=== PATIENT | female | born 1950 | race Native Hawaiian/Other Pacific Islander ===

== ENCOUNTER 2021-12-13 13:13 | Outpatient (CLI) | payer OTHER | END 2021-12-13 18:55 | disposition home or self-care (01) | LOC: RAD 13:13 | PROVIDERS: ATTEND Nurse Practitioner Family | DX: E55.9 Vitamin D deficiency, unspecified (principal); E56.8 Deficiency of other vitamins; M06.4 Inflammatory polyarthropathy; M85.89 Other specified disorders of bone density and structure, multiple sites; E79.0 Hyperuricemia without signs of inflammatory arthritis and tophaceous disease ==

== ENCOUNTER 2022-01-12 10:37 | Outpatient (CLI) | payer OTHER | END 2022-01-12 20:55 | disposition home or self-care (01) | LOC: LABW 10:37 → RAD 10:37 | PROVIDERS: ATTEND Nurse Practitioner Family | DX: M25.561 Pain in right knee (principal); M25.562 Pain in left knee; E79.0 Hyperuricemia without signs of inflammatory arthritis and tophaceous disease; M06.4 Inflammatory polyarthropathy; M19.041 Primary osteoarthritis, right hand; M19.071 Primary osteoarthritis, right ankle and foot; M19.072 Primary osteoarthritis, left ankle and foot; Z79.899 Other long term (current) drug therapy | CPT/HCPCS: 36415; 84443 ==